=== PATIENT | female | born 1995 | race Caucasian/White ===

== ENCOUNTER → 2019-02-26 | Outpatient (REF) | payer BC, SELFPAY | LOC: M LAB REF 12:13 | PROVIDERS: ATTEND Physician Assistant | DX: N39.0 Urinary tract infection, site not specified (principal) ==

== ENCOUNTER → 2019-09-03 | Outpatient (REF) | payer SELFPAY | LOC: M SFHCLERA 14:11 | PROVIDERS: ATTEND Nurse Practitioner Family | DX: J02.9 Acute pharyngitis, unspecified (principal) ==

== ENCOUNTER 2021-12-14 17:22 | Emergency (ER) | payer OTHER, SELFPAY ==
[~2021-12-14] VITALS: Ht 167.6 cm; Wt 73.0 kg
[2021-12-14] MEDS ORDERED: IBUPROFEN 800 MG TAB PO ONE (20:20)
[2021-12-14] MEDS ORDERED: BOOSTRIX/ADACEL VACCINE (DIPHTH/PERTUSS/ACELL/TETANUS) 0.5ML SYR IM ONE (20:20)
[2021-12-14] MEDS ORDERED: LIDOCAINE W/EPINEPHRINE 1% 20ML VIAL SC ONE (20:20)
[2021-12-14] MEDS ORDERED: AUGMENTIN 875 MG TAB PO ONE (20:25)
[2021-12-14] MEDS ORDERED: AMOX875T2 PO ×2 (21:43→22:17)
[2021-12-14 22:21] VITALS: BP 118/69
== END 2021-12-14 22:23 | disposition home or self-care (01) ==
LOC: M ED 17:22
DX: S51.852A Open bite of left forearm, initial encounter (principal); W54.0XXA Bitten by dog, initial encounter; Y92.830 Public park as the place of occurrence of the external cause

== ENCOUNTER → 2024-01-13 | Outpatient (REF) | payer OTHER ==
[~2024-01-13] MED LIST: AMOX875T2 PO
== END ==
LOC: M SFHCWAGY 13:28
PROVIDERS: ATTEND Nurse Practitioner Family
DX: Z12.4 Encounter for screening for malignant neoplasm of cervix (principal); Z11.51 Encounter for screening for human papillomavirus (HPV); Z01.419 Encounter for gynecological examination (general) (routine) without abnormal findings; Z77.9 Other contact with and (suspected) exposures hazardous to health